=== PATIENT | male | born 1965 | race Caucasian/White ===

== ENCOUNTER 2020-06-07 00:44 | Emergency (ER) | payer MEDICAID ==
[~2020-06-07] VITALS: Ht 182.9 cm; Wt 74.8 kg
[~2020-06-07 00:44] MED LIST: ASPI-394 PO; ATOR20TA50 PO
[2020-06-07 00:59] VITALS: BP 105/80
== END 2020-06-07 03:09 | disposition home or self-care (01) ==
LOC: ER 00:44
DX: S00.83XA Contusion of other part of head, initial encounter (principal); M54.2 Cervicalgia; Z88.6 Allergy status to analgesic agent; Z88.8 Allergy status to other drugs, medicaments and biological substances; Y04.0XXA Assault by unarmed brawl or fight, initial encounter; Y93.89 Activity, other specified; Y92.89 Other specified places as the place of occurrence of the external cause; Y99.8 Other external cause status
CPT/HCPCS: 70450; 70486; 72125; 73120